=== PATIENT | female | born 1960 | race Asian ===

== ENCOUNTER 2016-06-23 14:25 | Day surgery (SDC) | payer BC ==
[~2016-06-23] VITALS: Ht 160 cm; Wt 64.3 kg
[2016-06-23] MEDS ORDERED: ZOCOR 20MG20 MG PO (14:46)
[2016-06-23] MEDS ORDERED: OCUVITE1 TA1 PO (14:47)
[2016-06-23] MEDS ORDERED: PRINZIDE 12.5 M1 TAB PO (14:47)
[2016-06-23 15:41] VITALS: BP 130/81; PULSE 72; TEMP 98.3
[2016-06-23 15:45] VITALS: BP 94/61; PULSE 73; TEMP 98.1
[2016-06-23 16:00] VITALS: BP 108/74; PULSE 75
== END 2016-06-23 16:20 | disposition home or self-care (01) ==
LOC: SDCO 14:25
DX: Z80.0 Family history of malignant neoplasm of digestive organs (principal); I10 Essential (primary) hypertension; E78.00 Pure hypercholesterolemia, unspecified
CPT/HCPCS: OP; J2250; J3010

== ENCOUNTER → 2017-08-12 | Outpatient (CLI) | payer BC ==
[~2017-08-12] MED LIST: OCUVITE1 TA1 PO; PRINZIDE 12.5 M1 TAB PO; ZOCOR 20MG20 MG PO
== END ==
LOC: MC.RAD 13:00
DX: Z12.31 Encounter for screening mammogram for malignant neoplasm of breast (principal)

== ENCOUNTER → 2019-10-19 | Outpatient (CLI) | payer BC | LOC: MC.RAD 14:45 | DX: Z12.31 Encounter for screening mammogram for malignant neoplasm of breast (principal) ==

== ENCOUNTER 2020-12-24 16:48 | Emergency (ER) | payer BC ==
[~2020-12-24] VITALS: Ht 160 cm; Wt 72.7 kg
[2020-12-24 17:04] VITALS: TEMP 98.3
[2020-12-24] MEDS ORDERED: CRUTCHES MC (20:23)
[2020-12-24 20:46] VITALS: BP 145/76; PULSE 80
== END 2020-12-24 20:47 | disposition home or self-care (01) ==
LOC: COL.ER 16:48
DX: S92.411A Displaced fracture of proximal phalanx of right great toe, initial encounter for closed fracture (principal); I10 Essential (primary) hypertension; E78.5 Hyperlipidemia, unspecified; Z79.899 Other long term (current) drug therapy; V03.90XA Pedestrian on foot injured in collision with car, pick-up truck or van, unspecified whether traffic or nontraffic accident, initial encounter
CPT/HCPCS: J1885